=== PATIENT | male | born 1985 | race Caucasian/White ===

== ENCOUNTER 2024-02-26 12:34 | Emergency (ER) | payer SELFPAY ==
[~2024-02-26] VITALS: Ht 172.7 cm; Wt 90.7 kg
[2024-02-26] MEDS ORDERED: PENVK500 PO (12:43)
[2024-02-26] MEDS ORDERED: PAXIL40 MG PO (12:43)
[2024-02-26] MEDS ORDERED: LISI20 PO (12:43)
== END 2024-02-26 12:46 | disposition home or self-care (01) ==
LOC: ER 12:34
DX: K04.7 Periapical abscess without sinus (principal); I10 Essential (primary) hypertension; F32.A Depression, unspecified; Z76.0 Encounter for issue of repeat prescription; Z79.899 Other long term (current) drug therapy
CPT/HCPCS: 99282

== ENCOUNTER 2025-03-07 14:28 | Emergency (ER) | payer OTHER ==
[~2025-03-07] VITALS: Ht 162.6 cm; Wt 81.7 kg
[~2025-03-07 14:28] MED LIST: LISI20 PO; PAXIL40 MG PO; PENVK500 PO
[2025-03-07] MEDS ORDERED: Paxil40 MG PO (14:50)
[2025-03-07] MEDS ORDERED: LISI20 PO (14:50)
== END 2025-03-07 14:50 | disposition home or self-care (01) ==
LOC: ER 14:28
DX: I10 Essential (primary) hypertension (principal); Z76.0 Encounter for issue of repeat prescription; Z59.89 Other problems related to housing and economic circumstances; Z79.899 Other long term (current) drug therapy
CPT/HCPCS: 99281